=== PATIENT | male | born 1955 | race Caucasian/White ===

== ENCOUNTER 2019-07-27 13:35 | Inpatient (IN) | payer OTHER, MEDICARE ==
[~2019-07-27] VITALS: Ht 185.4 cm; Wt 127.8 kg
--- NOTE | 2019-07-27 13:57 | NUR ---
Pt to room from lobby.
--- NOTE | 2019-07-27 14:17 | NUR ---
Pt states that mailing clerk applied ostomy bag "all wrong" last Saturday. Pt states that since then has been having leaking all around ostomy dressing, watery green drainage noted. Pt's abd skin diffusely excoriated and tender. Pt states that mailing clerk sent pt in to be admitted for wound care. Pt placed in gown, positioned for comfort in bed, declines warm blanket offered. Continuous oxygen and BP monitors applied, all safety measures observed.
--- NOTE | 2019-07-27 14:26 | NUR ---
RECEIVED REPORT FROM [facility], PLAN OF CARE DISCUSSED. DR. ARRIAGA AT FOR EVALUATION.
[2019-07-27 14:29] LABS: MEAN CORPUSCULAR HEMOGLOBIN 24.2 pg (27.5-34.5); MEAN CORPUSCULAR HGB CONC 31.2 g/dL (33.2-36.2); MEAN CORPUSCULAR VOLUME 77.5 fL (81-97); MEAN PLATELET VOLUME 7.5 fL (7.4-10.4); PLATELET COUNT 599 x10^3/uL (130-400); RED BLOOD COUNT 4.98 x10^6/uL (4.38-5.82); RED CELL DISTRIBUTION WIDTH 25.8 % (9.4-14.8)
[2019-07-27 14:31] LABS: ALBUMIN 3.1 g/dL (3.4-5.0); CALCIUM 9.4 mg/dL (8.5-10.1); CREATININE 1.07 mg/dL (0.7-1.3)
[2019-07-27 14:47] LABS: ALANINE AMINOTRANSFERASE 26 U/L (12-78); ALKALINE PHOSPHATASE 92 U/L (45-117); ANION GAP 9 mmol/L (5-15); BILIRUBIN,TOTAL 0.6 mg/dL (0.2-1.0); CHLORIDE 104 mmol/L (98-107); TOTAL PROTEIN 8.4 g/dL (6.4-8.2)
[2019-07-27 15:17] LABS: MD YES
[2019-07-27 15:19] LABS: BAND#(MANUAL) 0.09 x10^3/uL; BANDS%(MANUAL) 1 % (0-7); BASOS#(MANUAL) 0.09 x10^3/uL (0-0.1); BASOS% (MANUAL) 1 % (0-1); EOS#(MANUAL) 0.34 x10^3/uL (0.0-0.4); EOS% (MANUAL) 4 % (1-7); LYMPH#(MANUAL) 1.45 x10^3/uL (1-3.4); LYMPHS% (MANUAL) 17 % (22-44); MONOS#(MANUAL) 0.94 x10^3/uL (0.3-2.7); MONOS% (MANUAL) 11 % (2-9); SEG#(MANUAL) 5.61 x10^3/uL (1.8-6.8); SEGS% (MANUAL) 66 % (42-75)
[2019-07-27 15:20] LABS: ANISOCYTOSIS 2+; HYPOCHROMIA 1+; MICROCYTOSIS 1+
[2019-07-27 15:21] LABS: TARGET CELLS 1+
[2019-07-27 15:22] LABS: <PLATELET ESTIMATE> INCREASED; <PLT MORPHOLOGY> NORMAL PLT MORPH
--- NOTE | 2019-07-27 15:48 | NUR ---
JUNG RIVAS, WOUND CARE IN ROOM
[2019-07-27 15:55] LABS: MICROSCOPIC NOT IND
[2019-07-27 16:04] LABS: CULTURE INDICATED? NO
--- NOTE | 2019-07-27 16:26 | NUR ---
SPOKE WITH JUNG RIVAS, WHO STATES, TO LEAVE FISTULA ALONE TONIGHT DUE TO MESH FIBERS SEEN.
[2019-07-27] MEDS ORDERED: OMNIPAQUE 350 MG/ML, 150 ML BOTTLE ONE (16:27)
--- NOTE | 2019-07-27 17:00 | NUR ---
PT RESTING, WILL BE ADMITTED, VERBALZIED NO NEEDS AT THIS TIME
[2019-07-27] MEDS ORDERED: VANCOMYCIN PER PHARMACY MC PRN ×2 (17:30→19:30)
--- NOTE | 2019-07-27 17:41 | NUR ---
REPORT JULIANNE RIVAS, PLAN OF CARE DISCUSSED.
[2019-07-27] MEDS ORDERED: VANCOMYCIN 2,000 MG in SODIUM CHLORIDE 0.9% 500 ML IV ONE (18:00)
[2019-07-27 18:50] VITALS: BP 97/63
[2019-07-27] MEDS ORDERED: ENALAPRILAT 1.25 MG/ML, 2ML IVPush PRN (19:30)
[2019-07-27] MEDS ORDERED: ONDANSETRON ODT 4 MG PO PRN (19:30)
[2019-07-27] MEDS ORDERED: LIDODERM 5% PATCH TD PRN (19:30)
[2019-07-27] MEDS ORDERED: ACETAMINOPHEN 325 MG TABLET PO PRN (19:30)
[2019-07-27] MEDS ORDERED: TEMAZEPAM 15 MG CAPSULE PO PRN (19:30)
[2019-07-27] MEDS: VANCOMYCIN 2,000 MG in SODIUM CHLORIDE 0.9% 500 ML IV SCH ×2 (19:43→21:07)
[2019-07-27] MEDS ORDERED: PHARMACOKINETIC MONITORING MC PRN (20:00)
[2019-07-28 00:43] VITALS: BP 107/71
[2019-07-28 07:32] VITALS: BP 109/66
[2019-07-28] MEDS: IRON SUCROSE COMPLEX 100MG/5ML IV SCH (09:01)
[2019-07-28 10:07] LABS: ANION GAP 5 mmol/L (5-15); CALCIUM 8.8 mg/dL (8.5-10.1); CHLORIDE 109 mmol/L (98-107)
[2019-07-28 10:09] LABS: MEAN CORPUSCULAR HGB CONC 30.9 g/dL (33.2-36.2); MEAN CORPUSCULAR VOLUME 77.7 fL (81-97); MEAN PLATELET VOLUME 7.7 fL (7.4-10.4); PLATELET COUNT 578 x10^3/uL (130-400); RED CELL DISTRIBUTION WIDTH 25.6 % (9.4-14.8)
[2019-07-28 10:18] LABS: CREATININE 0.94 mg/dL (0.7-1.3)
[2019-07-28 11:01] LABS: BASOPHILS # (AUTO) 0.01 x10^3/uL (0-0.1); BASOPHILS % (AUTO) 0 % (0-1); EOSINOPHILS # (AUTO) 0.44 x10^3/uL (0-0.4); EOSINOPHILS % (AUTO) 7 % (1-7); LYMPHOCYTES # (AUTO) 0.75 x10^3/uL (1-3.4); LYMPHOCYTES % (AUTO) 12 % (22-44); MD SCAN; MONOCYTES % (AUTO) 16 % (2-9); NEUTROPHILS # (AUTO) 3.94 x10^3/uL (1.8-6.8); NEUTROPHILS % (AUTO) 64 % (42-75)
[2019-07-28] MEDS: PIPERACILLIN/TAZO/PMX 3.375GM 50 ML IV SCH ×2 (11:11→18:32)
[2019-07-28] MEDS: VANCOMYCIN 2,000 MG in SODIUM CHLORIDE 0.9% 500 ML IV SCH (14:50)
[2019-07-28 14:59] VITALS: BP 90/60
[2019-07-28 21:10] VITALS: BP 110/70
[2019-07-29] MEDS: PIPERACILLIN/TAZO/PMX 3.375GM 50 ML IV SCH ×6 (00:30→23:57)
[2019-07-29 01:11] VITALS: BP 112/64
[2019-07-29 07:46] VITALS: BP 120/75
[2019-07-29] MEDS: VANCOMYCIN 2,000 MG in SODIUM CHLORIDE 0.9% 500 ML IV SCH (09:30)
[2019-07-29] MEDS: IRON SUCROSE COMPLEX 100MG/5ML IV SCH (09:30)
[2019-07-29 14:00] VITALS: BP 120/74
[2019-07-29 15:48] VITALS: BP 116/71
[2019-07-29 20:06] VITALS: BP 122/69
[2019-07-29] MEDS: TRAZODONE 50MG TABLET PO PRN (23:57)
[2019-07-30 02:26] VITALS: BP 127/71
[2019-07-30] MEDS: VANCOMYCIN 2,000 MG in SODIUM CHLORIDE 0.9% 500 ML IV SCH ×3 (03:30→22:19)
[2019-07-30] MEDS: PIPERACILLIN/TAZO/PMX 3.375GM 50 ML IV SCH ×3 (05:59→18:12)
[2019-07-30 07:13] VITALS: BP 100/63
[2019-07-30] MEDS: HEPARIN 5,000 UNITS/ML, 1ML SQ SCH ×3 (07:58→23:30)
[2019-07-30] MEDS: IRON SUCROSE COMPLEX 100MG/5ML IV SCH (07:58)
[2019-07-30 10:22] LABS: HCT (SEDRATE) 34.6 % (39.2-51.8)
[2019-07-30 15:08] VITALS: BP 128/78
[2019-07-30 20:03] VITALS: BP 119/72
[2019-07-31] MEDS: PIPERACILLIN/TAZO/PMX 3.375GM 50 ML IV SCH ×4 (00:30→18:21)
[2019-07-31] MEDS: HEPARIN 5,000 UNITS/ML, 1ML SQ SCH (07:30)
[2019-07-31 07:51] VITALS: BP 128/82
[2019-07-31] MEDS ORDERED: VANCOMYCIN PER PHARMACY MC PRN (08:00)
[2019-07-31] MEDS: IRON SUCROSE COMPLEX 100MG/5ML IV SCH (09:00)
[2019-07-31] MEDS: ENOXAPARIN 40 MG/0.4 ML SQ SCH (14:00)
[2019-07-31 15:07] VITALS: BP 148/88
[2019-07-31 19:23] VITALS: BP 119/72
[2019-08-01 00:03] VITALS: BP 121/76
[2019-08-01] MEDS: PIPERACILLIN/TAZO/PMX 3.375GM 50 ML IV SCH ×2 (00:08→06:14)
[2019-08-01] MEDS: TRAZODONE 50MG TABLET PO PRN (00:08)
[2019-08-01 06:56] VITALS: BP 111/70
[2019-08-01] MEDS: IRON SUCROSE COMPLEX 100MG/5ML IV SCH (09:19)
[2019-08-01] MEDS: CEFEPIME 2 GM in DEXTROSE 5% 100 ML IV SCH ×2 (10:48→17:55)
[2019-08-01 14:00] VITALS: BP 124/73
[2019-08-01] MEDS: ENOXAPARIN 40 MG/0.4 ML SQ SCH (16:29)
[2019-08-01 19:13] VITALS: BP 116/68
[2019-08-02 00:22] VITALS: BP 112/71
[2019-08-02] MEDS: CEFEPIME 2 GM in DEXTROSE 5% 100 ML IV SCH ×3 (01:46→17:18)
[2019-08-02 05:10] LABS: CREATININE 1.12 mg/dL (0.7-1.3)
[2019-08-02 08:48] VITALS: BP 118/71
[2019-08-02] MEDS ORDERED: IRON SUCROSE COMPLEX 100MG/5ML IV SCH (09:00)
[2019-08-02] MEDS: ENOXAPARIN 40 MG/0.4 ML SQ SCH (09:40)
[2019-08-02 12:13] VITALS: BP 108/62
[2019-08-02 19:20] VITALS: BP 116/71
[2019-08-03 00:32] VITALS: BP 109/62
[2019-08-03] MEDS: CEFEPIME 2 GM in DEXTROSE 5% 100 ML IV SCH ×3 (01:48→17:29)
[2019-08-03] MEDS: TRAZODONE 50MG TABLET PO PRN (01:48)
[2019-08-03 03:33] LABS: MEAN CORPUSCULAR HGB CONC 30.5 g/dL (33.2-36.2); MEAN CORPUSCULAR VOLUME 78.7 fL (81-97); MEAN PLATELET VOLUME 7.5 fL (7.4-10.4); PLATELET COUNT 606 x10^3/uL (130-400); RED BLOOD COUNT 4.71 x10^6/uL (4.38-5.82); RED CELL DISTRIBUTION WIDTH 26.7 % (9.4-14.8)
[2019-08-03 03:42] LABS: ALANINE AMINOTRANSFERASE 43 U/L (12-78); ALBUMIN 2.7 g/dL (3.4-5.0); ANION GAP 8 mmol/L (5-15); CHLORIDE 108 mmol/L (98-107)
[2019-08-03 03:45] LABS: ANISOCYTOSIS 2+; BASOPHILS % (AUTO) 0 % (0-1); EOSINOPHILS # (AUTO) 0.97 x10^3/uL (0-0.4); EOSINOPHILS % (AUTO) 10 % (1-7); HYPOCHROMIA 1+; LYMPHOCYTES # (AUTO) 2.94 x10^3/uL (1-3.4); LYMPHOCYTES % (AUTO) 30 % (22-44); MD MORPH REVIEW ONLY; MICROCYTOSIS 1+; MONOCYTES # (AUTO) 1.03 x10^3/uL (0.2-0.8); MONOCYTES % (AUTO) 11 % (2-9); NEUTROPHILS # (AUTO) 4.88 x10^3/uL (1.8-6.8); NEUTROPHILS % (AUTO) 50 % (42-75)
[2019-08-03 03:46] LABS: POLYCHROMASIA 1+; TARGET CELLS 1+; TEAR DROPS 1+
[2019-08-03 03:47] LABS: <PLATELET ESTIMATE> INCREASED; <PLT MORPHOLOGY> NORMAL PLT MORPH
[2019-08-03 03:49] LABS: ALKALINE PHOSPHATASE 72 U/L (45-117); BILIRUBIN,TOTAL 0.2 mg/dL (0.2-1.0); CREATININE 1.03 mg/dL (0.7-1.3); TOTAL PROTEIN 7.1 g/dL (6.4-8.2)
[2019-08-03 07:20] VITALS: BP 108/69
[2019-08-03 13:27] VITALS: BP 121/72
[2019-08-03] MEDS: ENOXAPARIN 40 MG/0.4 ML SQ SCH (13:47)
[2019-08-03 19:05] VITALS: BP 109/71
[2019-08-04 01:21] VITALS: BP 117/62
[2019-08-04] MEDS: CEFEPIME 2 GM in DEXTROSE 5% 100 ML IV SCH ×3 (01:38→17:42)
[2019-08-04] MEDS: TRAZODONE 50MG TABLET PO PRN (01:47)
[2019-08-04 08:19] VITALS: BP 113/77
[2019-08-04] MEDS: FERROUS SULFATE 325 MG TABLET PO SCH (09:30)
[2019-08-04] MEDS: ENOXAPARIN 40 MG/0.4 ML SQ SCH (14:00)
[2019-08-04 15:35] VITALS: BP 104/65
[2019-08-04 19:54] VITALS: BP 132/75
[2019-08-05] MEDS: TRAZODONE 50MG TABLET PO PRN (01:48)
[2019-08-05] MEDS: CEFEPIME 2 GM in DEXTROSE 5% 100 ML IV SCH ×3 (01:48→18:06)
[2019-08-05 02:41] VITALS: BP 98/60
[2019-08-05 08:22] VITALS: BP 124/75
[2019-08-05] MEDS: FERROUS SULFATE 325 MG TABLET PO SCH (08:37)
[2019-08-05 13:40] VITALS: BP 121/72
[2019-08-05] MEDS: ENOXAPARIN 40 MG/0.4 ML SQ SCH (14:00)
[2019-08-05 19:54] VITALS: BP 129/70
[2019-08-06 01:43] VITALS: BP 121/72
[2019-08-06] MEDS: CEFEPIME 2 GM in DEXTROSE 5% 100 ML IV SCH ×3 (02:03→18:42)
[2019-08-06] MEDS: FERROUS SULFATE 325 MG TABLET PO SCH (07:38)
[2019-08-06 08:24] VITALS: BP 108/65
[2019-08-06] MEDS: ENOXAPARIN 40 MG/0.4 ML SQ SCH (14:00)
[2019-08-06 14:47] VITALS: BP 121/73
[2019-08-06 21:29] VITALS: BP 113/68
[2019-08-07] MEDS: TRAZODONE 50MG TABLET PO PRN (01:51)
[2019-08-07] MEDS: CEFEPIME 2 GM in DEXTROSE 5% 100 ML IV SCH ×3 (01:52→17:32)
[2019-08-07 02:45] VITALS: BP 110/74
[2019-08-07] MEDS: FERROUS SULFATE 325 MG TABLET PO SCH (08:40)
[2019-08-07 08:52] VITALS: BP 105/68
[2019-08-07] MEDS: ENOXAPARIN 40 MG/0.4 ML SQ SCH (14:00)
[2019-08-07 14:49] VITALS: BP 126/79
[2019-08-07 20:00] VITALS: BP 156/91
[2019-08-08 01:00] VITALS: BP 119/74
[2019-08-08] MEDS: CEFEPIME 2 GM in DEXTROSE 5% 100 ML IV SCH ×3 (01:44→17:23)
[2019-08-08 07:07] VITALS: BP 113/70
[2019-08-08] MEDS: FERROUS SULFATE 325 MG TABLET PO SCH (08:53)
[2019-08-08] MEDS: MULTIVITAMIN 1 TABLET PO SCH (08:53)
[2019-08-08 14:45] VITALS: BP 130/78
[2019-08-08] MEDS: ENOXAPARIN 40 MG/0.4 ML SQ SCH (17:23)
[2019-08-09] MEDS: CEFEPIME 2 GM in DEXTROSE 5% 100 ML IV SCH ×3 (01:44→17:32)
[2019-08-09] MEDS: TRAZODONE 50MG TABLET PO PRN (02:23)
[2019-08-09 08:40] VITALS: BP 136/86
[2019-08-09] MEDS: FERROUS SULFATE 325 MG TABLET PO SCH (09:36)
[2019-08-09] MEDS: MULTIVITAMIN 1 TABLET PO SCH (09:36)
[2019-08-09 14:56] VITALS: BP 114/77
[2019-08-09] MEDS: ENOXAPARIN 40 MG/0.4 ML SQ SCH (17:32)
[2019-08-09 20:21] VITALS: BP 107/70
[2019-08-10 00:58] VITALS: BP 119/77
[2019-08-10] MEDS: TRAZODONE 50MG TABLET PO PRN (01:51)
[2019-08-10] MEDS: CEFEPIME 2 GM in DEXTROSE 5% 100 ML IV SCH ×3 (01:51→18:01)
[2019-08-10] MEDS: FERROUS SULFATE 325 MG TABLET PO SCH (08:13)
[2019-08-10] MEDS: MULTIVITAMIN 1 TABLET PO SCH (08:13)
[2019-08-10 08:50] VITALS: BP 114/72
[2019-08-10 12:54] LABS: HCT (SEDRATE) 42.3 % (39.2-51.8)
[2019-08-10 13:20] VITALS: BP 133/81
[2019-08-10] MEDS ORDERED: CATHFLO-ALTEPLASE 2 MG/2 ML CATHFLUSH ONE (17:00)
[2019-08-10] MEDS: ENOXAPARIN 40 MG/0.4 ML SQ SCH (18:01)
[2019-08-10 18:32] VITALS: BP 126/82
[2019-08-11] MEDS: CEFEPIME 2 GM in DEXTROSE 5% 100 ML IV SCH ×3 (02:08→18:21)
[2019-08-11 02:11] VITALS: BP 126/84
[2019-08-11 06:09] LABS: ALANINE AMINOTRANSFERASE 75 U/L (12-78); ALBUMIN 2.9 g/dL (3.4-5.0); ANION GAP 5 mmol/L (5-15); CALCIUM 9.1 mg/dL (8.5-10.1); CHLORIDE 109 mmol/L (98-107); MEAN CORPUSCULAR HGB CONC 31.1 g/dL (33.2-36.2); MEAN CORPUSCULAR VOLUME 80.4 fL (81-97); MEAN PLATELET VOLUME 8.1 fL (7.4-10.4); PLATELET COUNT 407 x10^3/uL (130-400); RED BLOOD COUNT 4.82 x10^6/uL (4.38-5.82); RED CELL DISTRIBUTION WIDTH 26.9 % (9.4-14.8)
[2019-08-11 06:12] LABS: ALKALINE PHOSPHATASE 90 U/L (45-117); BILIRUBIN,TOTAL 0.2 mg/dL (0.2-1.0); CREATININE 1.05 mg/dL (0.7-1.3); TOTAL PROTEIN 7.7 g/dL (6.4-8.2)
[2019-08-11 06:22] LABS: MD YES
[2019-08-11 06:24] LABS: EOS#(MANUAL) 1.64 x10^3/uL (0.0-0.4); EOS% (MANUAL) 18 % (1-7); LYMPH#(MANUAL) 2.28 x10^3/uL (1-3.4); LYMPHS% (MANUAL) 25 % (22-44); MONOS#(MANUAL) 0.46 x10^3/uL (0.3-2.7); MONOS% (MANUAL) 5 % (2-9); SEG#(MANUAL) 4.73 x10^3/uL (1.8-6.8); SEGS% (MANUAL) 52 % (42-75)
[2019-08-11 06:25] LABS: <PLATELET ESTIMATE> ADEQUATE; <PLT MORPHOLOGY> NORMAL PLT MORPH; ANISOCYTOSIS 2+; HYPOCHROMIA 1+; MICROCYTOSIS 1+; POLYCHROMASIA 1+; TARGET CELLS 1+; TEAR DROPS 1+
[2019-08-11 06:52] VITALS: BP 121/79
[2019-08-11] MEDS: FERROUS SULFATE 325 MG TABLET PO SCH (08:48)
[2019-08-11] MEDS: MULTIVITAMIN 1 TABLET PO SCH (08:48)
[2019-08-11 13:15] VITALS: BP 119/74
[2019-08-11] MEDS: ENOXAPARIN 40 MG/0.4 ML SQ SCH (18:00)
[2019-08-11 18:59] VITALS: BP 123/79
[2019-08-12 00:44] VITALS: BP 119/74
[2019-08-12] MEDS: TRAZODONE 50MG TABLET PO PRN ×2 (02:47→22:52)
[2019-08-12 03:25] LABS: ALANINE AMINOTRANSFERASE 79 U/L (12-78); ANION GAP 6 mmol/L (5-15); CALCIUM 8.9 mg/dL (8.5-10.1); CHLORIDE 107 mmol/L (98-107); CREATININE 1.13 mg/dL (0.7-1.3)
[2019-08-12 03:27] LABS: ALKALINE PHOSPHATASE 94 U/L (45-117); BILIRUBIN,TOTAL 0.3 mg/dL (0.2-1.0); TOTAL PROTEIN 7.9 g/dL (6.4-8.2)
[2019-08-12 06:59] VITALS: BP 98/62
[2019-08-12] MEDS: MULTIVITAMIN 1 TABLET PO SCH (08:20)
[2019-08-12] MEDS: FERROUS SULFATE 325 MG TABLET PO SCH (08:20)
[2019-08-12 13:45] VITALS: BP 121/68
[2019-08-12] MEDS: ENOXAPARIN 40 MG/0.4 ML SQ SCH (17:49)
[2019-08-12 18:50] VITALS: BP 108/67
[2019-08-13 09:01] VITALS: BP 122/81
[2019-08-13] MEDS: MULTIVITAMIN 1 TABLET PO SCH (09:03)
[2019-08-13] MEDS: FERROUS SULFATE 325 MG TABLET PO SCH (09:03)
[2019-08-13 13:15] VITALS: BP 153/71
[2019-08-13] MEDS: ENOXAPARIN 40 MG/0.4 ML SQ SCH (17:24)
[2019-08-13] MEDS: TRAZODONE 50MG TABLET PO PRN (22:20)
[2019-08-13 22:22] VITALS: BP 130/76
[2019-08-14 08:53] VITALS: BP 116/66
[2019-08-14] MEDS: FERROUS SULFATE 325 MG TABLET PO SCH (08:55)
[2019-08-14] MEDS: MULTIVITAMIN 1 TABLET PO SCH (08:56)
[2019-08-14 15:19] VITALS: BP 130/80
[2019-08-14] MEDS: ENOXAPARIN 40 MG/0.4 ML SQ SCH (17:38)
[2019-08-14 20:18] VITALS: BP 104/78
[2019-08-14] MEDS: TRAZODONE 50MG TABLET PO PRN (22:32)
[2019-08-15 08:53] VITALS: BP 128/71
[2019-08-15] MEDS: MULTIVITAMIN 1 TABLET PO SCH (08:56)
[2019-08-15] MEDS: FERROUS SULFATE 325 MG TABLET PO SCH (08:56)
[2019-08-15 14:58] VITALS: BP 148/83
[2019-08-15] MEDS: ENOXAPARIN 40 MG/0.4 ML SQ SCH (18:00)
[2019-08-15 19:06] VITALS: BP 120/76
[2019-08-15] MEDS: TRAZODONE 50MG TABLET PO PRN (22:14)
[2019-08-16 01:13] VITALS: BP 105/60
[2019-08-16 05:25] LABS: CHLORIDE 106 mmol/L (98-107)
[2019-08-16 05:32] LABS: ALANINE AMINOTRANSFERASE 48 U/L (12-78); ALBUMIN 3.2 g/dL (3.4-5.0); ALKALINE PHOSPHATASE 85 U/L (45-117); ANION GAP 6 mmol/L (5-15); BILIRUBIN,TOTAL 0.4 mg/dL (0.2-1.0); CALCIUM 9.1 mg/dL (8.5-10.1); CREATININE 1.08 mg/dL (0.7-1.3); TOTAL PROTEIN 7.6 g/dL (6.4-8.2)
[2019-08-16 07:10] VITALS: BP 102/67
[2019-08-16] MEDS: FERROUS SULFATE 325 MG TABLET PO SCH (10:25)
[2019-08-16] MEDS: MULTIVITAMIN 1 TABLET PO SCH (10:25)
[2019-08-16 13:07] VITALS: BP 110/71
[2019-08-16] MEDS: ENOXAPARIN 40 MG/0.4 ML SQ SCH (17:10)
[2019-08-16 18:32] VITALS: BP 122/75
[2019-08-16] MEDS: TRAZODONE 50MG TABLET PO PRN (23:22)
[2019-08-17 01:46] VITALS: BP 105/68
[2019-08-17 07:25] VITALS: BP 103/69
[2019-08-17] MEDS: FERROUS SULFATE 325 MG TABLET PO SCH (08:05)
[2019-08-17] MEDS: MULTIVITAMIN 1 TABLET PO SCH (08:05)
[2019-08-17 14:37] VITALS: BP 122/76
[2019-08-17] MEDS: ENOXAPARIN 40 MG/0.4 ML SQ SCH (17:59)
[2019-08-17 20:09] VITALS: BP 129/77
[2019-08-17] MEDS: TRAZODONE 50MG TABLET PO PRN (22:42)
[2019-08-18 04:54] VITALS: BP 112/67
[2019-08-18] MEDS: FERROUS SULFATE 325 MG TABLET PO SCH (08:28)
[2019-08-18] MEDS: MULTIVITAMIN 1 TABLET PO SCH (08:28)
[2019-08-18] MEDS: ENOXAPARIN 40 MG/0.4 ML SQ SCH (16:58)
[2019-08-18 18:59] VITALS: BP 98/63
[2019-08-19 02:08] VITALS: BP 104/57
[2019-08-19] MEDS: DOCUSATE 100 MG CAPSULE PO PRN ×2 (04:44→21:20)
[2019-08-19] MEDS ORDERED: BISACODYL 10 MG SUPP PR PRN (05:30)
[2019-08-19] MEDS ORDERED: POLYETHYLENE GLYCOL 17 GM PACKET PO PRN (05:30)
[2019-08-19] MEDS: FERROUS SULFATE 325 MG TABLET PO SCH ×2 (08:01→08:02)
[2019-08-19] MEDS: MULTIVITAMIN 1 TABLET PO SCH (08:01)
[2019-08-19 08:49] VITALS: BP 90/64
[2019-08-19] MEDS ORDERED: BISACODYL 10 MG SUPP PR SCH (09:30)
[2019-08-19] MEDS ORDERED: LACTULOSE 3.3 GM/5 ML ORAL.SOL RC ONE (09:30)
[2019-08-19 12:44] VITALS: BP 121/74
[2019-08-19] MEDS: ENOXAPARIN 40 MG/0.4 ML SQ SCH (18:00)
[2019-08-19 18:55] VITALS: BP 111/77
[2019-08-20 02:59] VITALS: BP 128/80
[2019-08-20 07:40] VITALS: BP 109/69
[2019-08-20] MEDS: MULTIVITAMIN 1 TABLET PO SCH (09:53)
[2019-08-20 14:55] VITALS: BP 119/76
[2019-08-20] MEDS: ENOXAPARIN 40 MG/0.4 ML SQ SCH (17:46)
[2019-08-20 19:37] VITALS: BP 121/74
[2019-08-21] MEDS: DOCUSATE 100 MG CAPSULE PO PRN (00:21)
[2019-08-21] MEDS: TRAZODONE 50MG TABLET PO PRN ×2 (00:21→23:59)
[2019-08-21 00:29] VITALS: BP 105/66
[2019-08-21 07:31] VITALS: BP 113/74
[2019-08-21] MEDS: FERROUS SULFATE 325 MG TABLET PO SCH (08:46)
[2019-08-21] MEDS: MULTIVITAMIN 1 TABLET PO SCH (08:46)
[2019-08-21 12:27] VITALS: BP 101/70
[2019-08-21] MEDS: ENOXAPARIN 40 MG/0.4 ML SQ SCH (18:00)
[2019-08-21 19:16] VITALS: BP 112/71
[2019-08-22 00:53] VITALS: BP 98/74
[2019-08-22] MEDS: FERROUS SULFATE 325 MG TABLET PO SCH (08:46)
[2019-08-22] MEDS: MULTIVITAMIN 1 TABLET PO SCH (08:46)
[2019-08-22 11:30] VITALS: BP 116/76
[2019-08-22] MEDS: ENOXAPARIN 40 MG/0.4 ML SQ SCH (18:00)
[2019-08-22 18:31] VITALS: BP 129/72
[2019-08-22] MEDS: TRAZODONE 50MG TABLET PO PRN (23:24)
[2019-08-22] MEDS: DOCUSATE 100 MG CAPSULE PO PRN ×2 (23:24)
[2019-08-23 08:00] VITALS: BP 114/67
[2019-08-23] MEDS: MULTIVITAMIN 1 TABLET PO SCH (08:17)
[2019-08-23] MEDS: FERROUS SULFATE 325 MG TABLET PO SCH (08:17)
[2019-08-23 10:36] VITALS: BP 114/67
[2019-08-23 13:30] VITALS: BP 118/70
[2019-08-23] MEDS: ENOXAPARIN 40 MG/0.4 ML SQ SCH (18:00)
[2019-08-23 19:56] VITALS: BP 115/74
[2019-08-23] MEDS: TRAZODONE 50MG TABLET PO PRN (23:43)
[2019-08-23] MEDS: DOCUSATE 100 MG CAPSULE PO PRN (23:44)
[2019-08-24 02:16] VITALS: BP 102/67
[2019-08-24 08:00] VITALS: BP 106/73
[2019-08-24] MEDS: MULTIVITAMIN 1 TABLET PO SCH (08:32)
[2019-08-24] MEDS: FERROUS SULFATE 325 MG TABLET PO SCH (08:32)
[2019-08-24] MEDS: DOCUSATE 100 MG CAPSULE PO PRN (08:37)
[2019-08-24 13:09] VITALS: BP 108/70
[2019-08-24] MEDS: ENOXAPARIN 40 MG/0.4 ML SQ SCH (18:00)
[2019-08-24 18:49] VITALS: BP 126/76
[2019-08-25] MEDS: DOCUSATE 100 MG CAPSULE PO PRN (04:24)
[2019-08-25 07:11] VITALS: BP 130/81
[2019-08-25] MEDS: MULTIVITAMIN 1 TABLET PO SCH (08:07)
[2019-08-25] MEDS: FERROUS SULFATE 325 MG TABLET PO SCH (08:07)
[2019-08-25] MEDS ORDERED: ZINC PO SCH (09:30)
[2019-08-25] MEDS ORDERED: MULTIVIT STRESS FORMULA PO SCH (09:30)
[2019-08-25] MEDS: MULTIVITS,STRESS FORMULA 1 TABLET PO SCH (10:37)
[2019-08-25 13:41] VITALS: BP 94/66
[2019-08-25] MEDS: ENOXAPARIN 40 MG/0.4 ML SQ SCH (18:00)
[2019-08-25 20:06] VITALS: BP 111/74
[2019-08-26] MEDS: DOCUSATE 100 MG CAPSULE PO PRN (04:17)
[2019-08-26 08:12] VITALS: BP 88/63
[2019-08-26] MEDS: MULTIVITAMIN 1 TABLET PO SCH (09:10)
[2019-08-26] MEDS: FERROUS SULFATE 325 MG TABLET PO SCH (09:10)
[2019-08-26] MEDS: MULTIVITS,STRESS FORMULA 1 TABLET PO SCH (09:10)
[2019-08-26 14:13] VITALS: BP 108/70
[2019-08-26] MEDS: ENOXAPARIN 40 MG/0.4 ML SQ SCH (17:22)
[2019-08-26 19:46] VITALS: BP 112/72
[2019-08-27 07:38] VITALS: BP 105/69
[2019-08-27] MEDS: FERROUS SULFATE 325 MG TABLET PO SCH (08:35)
[2019-08-27] MEDS: MULTIVITAMIN 1 TABLET PO SCH (08:35)
[2019-08-27] MEDS: MULTIVITS,STRESS FORMULA 1 TABLET PO SCH (08:35)
[2019-08-27] MEDS: DOCUSATE 100 MG CAPSULE PO PRN (09:51)
[2019-08-27 14:32] VITALS: BP 93/64
[2019-08-27] MEDS: ENOXAPARIN 40 MG/0.4 ML SQ SCH (18:00)
[2019-08-27 18:47] VITALS: BP 93/66
[2019-08-28 07:29] VITALS: BP 105/68
[2019-08-28] MEDS: FERROUS SULFATE 325 MG TABLET PO SCH ×2 (09:14→09:24)
[2019-08-28] MEDS: MULTIVITAMIN 1 TABLET PO SCH ×2 (09:14→09:24)
[2019-08-28] MEDS: MULTIVITS,STRESS FORMULA 1 TABLET PO SCH ×2 (09:14→09:24)
[2019-08-28] MEDS: ENOXAPARIN 40 MG/0.4 ML SQ SCH (09:15)
[2019-08-28] MEDS: DOCUSATE 100 MG CAPSULE PO PRN (09:23)
[2019-08-28 15:02] VITALS: BP 115/75
[2019-08-28 18:58] VITALS: BP 122/76
[2019-08-29 03:22] VITALS: BP 100/62
[2019-08-29] MEDS: DOCUSATE 100 MG CAPSULE PO PRN (04:01)
[2019-08-29 08:27] VITALS: BP 113/73
[2019-08-29] MEDS: MULTIVITS,STRESS FORMULA 1 TABLET PO SCH (09:29)
[2019-08-29] MEDS: FERROUS SULFATE 325 MG TABLET PO SCH (09:30)
[2019-08-29] MEDS: MULTIVITAMIN 1 TABLET PO SCH (09:30)
[2019-08-29 13:25] VITALS: BP 98/68
[2019-08-29] MEDS: ENOXAPARIN 40 MG/0.4 ML SQ SCH (17:02)
[2019-08-29 20:07] VITALS: BP 111/73
[2019-08-30 03:28] VITALS: BP 102/68
[2019-08-30] MEDS: TRAZODONE 50MG TABLET PO PRN ×2 (03:45→23:02)
[2019-08-30] MEDS: DOCUSATE 100 MG CAPSULE PO PRN (09:49)
[2019-08-30] MEDS: MULTIVITAMIN 1 TABLET PO SCH (09:49)
[2019-08-30] MEDS: MULTIVITS,STRESS FORMULA 1 TABLET PO SCH (09:49)
[2019-08-30] MEDS: FERROUS SULFATE 325 MG TABLET PO SCH (09:49)
[2019-08-30 13:33] VITALS: BP_SYST 112; BP_SYST 78; BP_DIAS 51; BP_DIAS 68
[2019-08-30] MEDS: ENOXAPARIN 40 MG/0.4 ML SQ SCH (18:00)
[2019-08-30 19:14] VITALS: BP 93/62
[2019-08-31 07:10] VITALS: BP 96/56
[2019-08-31] MEDS: FERROUS SULFATE 325 MG TABLET PO SCH (08:00)
[2019-08-31] MEDS: MULTIVITAMIN 1 TABLET PO SCH (09:00)
[2019-08-31] MEDS: MULTIVITS,STRESS FORMULA 1 TABLET PO SCH (09:00)
[2019-08-31 14:28] VITALS: BP 126/76
[2019-08-31] MEDS: ENOXAPARIN 40 MG/0.4 ML SQ SCH (16:38)
[2019-08-31 20:20] VITALS: BP 121/60
[2019-09-01 00:21] VITALS: BP 118/72
[2019-09-01 07:26] VITALS: BP 90/65
[2019-09-01] MEDS: MULTIVITAMIN 1 TABLET PO SCH (09:22)
[2019-09-01] MEDS: MULTIVITS,STRESS FORMULA 1 TABLET PO SCH (09:22)
[2019-09-01] MEDS: FERROUS SULFATE 325 MG TABLET PO SCH (09:22)
[2019-09-01] MEDS: ENOXAPARIN 40 MG/0.4 ML SQ SCH (17:15)
[2019-09-01 19:40] VITALS: BP 121/73
[2019-09-02 01:00] VITALS: BP 120/75
[2019-09-02] MEDS: FERROUS SULFATE 325 MG TABLET PO SCH (07:18)
[2019-09-02] MEDS: MULTIVITS,STRESS FORMULA 1 TABLET PO SCH (07:18)
[2019-09-02] MEDS: MULTIVITAMIN 1 TABLET PO SCH (07:18)
[2019-09-02 07:43] VITALS: BP 123/84
[2019-09-02 14:00] VITALS: BP 122/58
[2019-09-02] MEDS: ENOXAPARIN 40 MG/0.4 ML SQ SCH (17:26)
[2019-09-02 19:50] VITALS: BP 116/75
[2019-09-03 03:55] VITALS: BP 114/73
[2019-09-03 06:53] VITALS: BP 116/97
[2019-09-03] MEDS: MULTIVITAMIN 1 TABLET PO SCH (08:09)
[2019-09-03] MEDS: FERROUS SULFATE 325 MG TABLET PO SCH (08:09)
[2019-09-03] MEDS: MULTIVITS,STRESS FORMULA 1 TABLET PO SCH (08:09)
[2019-09-03] MEDS: DOCUSATE 100 MG CAPSULE PO PRN ×2 (08:13→23:11)
[2019-09-03 12:36] VITALS: BP 117/56
[2019-09-03] MEDS: ENOXAPARIN 40 MG/0.4 ML SQ SCH (18:00)
[2019-09-03 20:10] VITALS: BP 113/62
[2019-09-03] MEDS: TRAZODONE 50MG TABLET PO PRN (23:11)
[2019-09-04 03:04] VITALS: BP 115/70
[2019-09-04 08:10] VITALS: BP 139/78
[2019-09-04] MEDS: MULTIVITAMIN 1 TABLET PO SCH (09:56)
[2019-09-04] MEDS: FERROUS SULFATE 325 MG TABLET PO SCH (09:56)
[2019-09-04] MEDS: MULTIVITS,STRESS FORMULA 1 TABLET PO SCH (09:56)
[2019-09-04 14:42] VITALS: BP 114/72
[2019-09-04] MEDS: ENOXAPARIN 40 MG/0.4 ML SQ SCH (18:00)
[2019-09-04 20:18] VITALS: BP 108/69
[2019-09-04] MEDS: DOCUSATE 100 MG CAPSULE PO PRN (23:48)
[2019-09-04] MEDS: TRAZODONE 50MG TABLET PO PRN (23:48)
[2019-09-05 01:14] VITALS: BP 100/62
[2019-09-05 07:39] VITALS: BP 115/70
[2019-09-05] MEDS: MULTIVITS,STRESS FORMULA 1 TABLET PO SCH (08:28)
[2019-09-05] MEDS: MULTIVITAMIN 1 TABLET PO SCH (08:28)
[2019-09-05] MEDS: FERROUS SULFATE 325 MG TABLET PO SCH (08:29)
[2019-09-05] MEDS: DOCUSATE 100 MG CAPSULE PO PRN ×2 (08:40→23:17)
[2019-09-05 13:04] VITALS: BP 116/74
[2019-09-05] MEDS: ENOXAPARIN 40 MG/0.4 ML SQ SCH (18:00)
[2019-09-05 19:34] VITALS: BP 107/75
[2019-09-05] MEDS: TRAZODONE 50MG TABLET PO PRN (23:17)
[2019-09-06] MEDS: FERROUS SULFATE 325 MG TABLET PO SCH (07:47)
[2019-09-06] MEDS: MULTIVITAMIN 1 TABLET PO SCH (07:48)
[2019-09-06] MEDS: MULTIVITS,STRESS FORMULA 1 TABLET PO SCH (07:48)
[2019-09-06 07:50] VITALS: BP 118/74
[2019-09-06 14:00] VITALS: BP 115/68
[2019-09-06] MEDS: ENOXAPARIN 40 MG/0.4 ML SQ SCH (16:16)
[2019-09-06 19:57] VITALS: BP 116/74
[2019-09-07] MEDS: TRAZODONE 50MG TABLET PO PRN (00:38)
[2019-09-07] MEDS: DOCUSATE 100 MG CAPSULE PO PRN (00:38)
[2019-09-07 01:58] VITALS: BP 95/60
[2019-09-07 08:01] VITALS: BP 113/69
[2019-09-07] MEDS: MULTIVITAMIN 1 TABLET PO SCH (08:34)
[2019-09-07] MEDS: FERROUS SULFATE 325 MG TABLET PO SCH (08:34)
[2019-09-07] MEDS: MULTIVITS,STRESS FORMULA 1 TABLET PO SCH (08:34)
[2019-09-07 13:54] VITALS: BP 105/65
[2019-09-07] MEDS: ENOXAPARIN 40 MG/0.4 ML SQ SCH (17:31)
[2019-09-07 19:37] VITALS: BP 109/70
[2019-09-07 23:58] VITALS: BP 100/67
[2019-09-08] MEDS: TRAZODONE 50MG TABLET PO PRN (00:12)
[2019-09-08 07:57] VITALS: BP 103/65
[2019-09-08] MEDS: MULTIVITAMIN 1 TABLET PO SCH (09:18)
[2019-09-08] MEDS: FERROUS SULFATE 325 MG TABLET PO SCH (09:18)
[2019-09-08] MEDS: MULTIVITS,STRESS FORMULA 1 TABLET PO SCH (09:18)
[2019-09-08 14:19] VITALS: BP 110/65
[2019-09-08] MEDS: ENOXAPARIN 40 MG/0.4 ML SQ SCH (17:30)
[2019-09-08 19:00] VITALS: BP 108/68
[2019-09-09 00:18] VITALS: BP 109/67
[2019-09-09] MEDS: TRAZODONE 50MG TABLET PO PRN (00:29)
[2019-09-09] MEDS: DOCUSATE 100 MG CAPSULE PO PRN (00:29)
[2019-09-09] MEDS: FERROUS SULFATE 325 MG TABLET PO SCH (09:00)
[2019-09-09] MEDS: MULTIVITS,STRESS FORMULA 1 TABLET PO SCH (09:00)
[2019-09-09] MEDS: MULTIVITAMIN 1 TABLET PO SCH (09:00)
[2019-09-09 09:01] VITALS: BP 114/71
[2019-09-09 14:17] VITALS: BP 111/75
[2019-09-09] MEDS: ENOXAPARIN 40 MG/0.4 ML SQ SCH (17:24)
[2019-09-09 20:01] VITALS: BP 126/72
[2019-09-10 00:10] VITALS: BP 118/67
[2019-09-10] MEDS: TRAZODONE 50MG TABLET PO PRN ×2 (00:23→23:24)
[2019-09-10] MEDS: DOCUSATE 100 MG CAPSULE PO PRN ×2 (00:23→23:24)
[2019-09-10] MEDS: FERROUS SULFATE 325 MG TABLET PO SCH (10:46)
[2019-09-10] MEDS: MULTIVITS,STRESS FORMULA 1 TABLET PO SCH (10:46)
[2019-09-10] MEDS: MULTIVITAMIN 1 TABLET PO SCH (10:46)
[2019-09-10] MEDS: ENOXAPARIN 40 MG/0.4 ML SQ SCH (18:00)
[2019-09-10 19:31] VITALS: BP 107/62
[2019-09-10 23:26] VITALS: BP 120/67
[2019-09-11 02:29] VITALS: BP 118/65
[2019-09-11 07:44] VITALS: BP 110/73
[2019-09-11] MEDS: FERROUS SULFATE 325 MG TABLET PO SCH (10:53)
[2019-09-11] MEDS: MULTIVITS,STRESS FORMULA 1 TABLET PO SCH (10:53)
[2019-09-11] MEDS: MULTIVITAMIN 1 TABLET PO SCH (10:53)
[2019-09-11 14:00] VITALS: BP 130/76
[2019-09-11] MEDS: ENOXAPARIN 40 MG/0.4 ML SQ SCH (18:00)
[2019-09-11 20:49] VITALS: BP 142/69
[2019-09-11] MEDS: TRAZODONE 50MG TABLET PO PRN (23:25)
[2019-09-11] MEDS: DOCUSATE 100 MG CAPSULE PO PRN (23:25)
[2019-09-12 00:25] VITALS: BP 114/70
[2019-09-12] MEDS: FERROUS SULFATE 325 MG TABLET PO SCH (08:00)
[2019-09-12] MEDS: MULTIVITAMIN 1 TABLET PO SCH (09:00)
[2019-09-12] MEDS: MULTIVITS,STRESS FORMULA 1 TABLET PO SCH (09:00)
[2019-09-12] MEDS: ENOXAPARIN 40 MG/0.4 ML SQ SCH (18:03)
[2019-09-12 19:25] VITALS: BP 117/72
[2019-09-12] MEDS: TRAZODONE 50MG TABLET PO PRN (23:48)
[2019-09-13 01:59] VITALS: BP 102/63
[2019-09-13 07:30] VITALS: BP 116/74
[2019-09-13] MEDS: MULTIVITAMIN 1 TABLET PO SCH (08:54)
[2019-09-13] MEDS: FERROUS SULFATE 325 MG TABLET PO SCH (08:54)
[2019-09-13] MEDS: MULTIVITS,STRESS FORMULA 1 TABLET PO SCH (08:54)
[2019-09-13 13:40] VITALS: BP 125/76
[2019-09-13] MEDS: ENOXAPARIN 40 MG/0.4 ML SQ SCH (18:00)
[2019-09-13 18:26] VITALS: BP 133/79
[2019-09-14] MEDS: TRAZODONE 50MG TABLET PO PRN (01:48)
[2019-09-14 10:25] VITALS: BP 105/61
[2019-09-14] MEDS: FERROUS SULFATE 325 MG TABLET PO SCH (10:38)
[2019-09-14] MEDS: MULTIVITS,STRESS FORMULA 1 TABLET PO SCH (10:39)
[2019-09-14] MEDS: MULTIVITAMIN 1 TABLET PO SCH (10:39)
[2019-09-14] MEDS: ENOXAPARIN 40 MG/0.4 ML SQ SCH (18:00)
[2019-09-14 19:56] VITALS: BP 123/75
[2019-09-15 08:19] VITALS: BP 125/77
[2019-09-15] MEDS: MULTIVITAMIN 1 TABLET PO SCH (08:35)
[2019-09-15] MEDS: MULTIVITS,STRESS FORMULA 1 TABLET PO SCH (08:35)
[2019-09-15] MEDS: FERROUS SULFATE 325 MG TABLET PO SCH (08:36)
[2019-09-15 14:57] VITALS: BP 138/84
[2019-09-15] MEDS: ENOXAPARIN 40 MG/0.4 ML SQ SCH (17:57)
[2019-09-16 07:29] VITALS: BP 142/79
[2019-09-16] MEDS: MULTIVITS,STRESS FORMULA 1 TABLET PO SCH (08:11)
[2019-09-16] MEDS: MULTIVITAMIN 1 TABLET PO SCH (08:11)
[2019-09-16] MEDS: FERROUS SULFATE 325 MG TABLET PO SCH (08:11)
[2019-09-16 13:08] VITALS: BP 146/74
[2019-09-16] MEDS: ENOXAPARIN 40 MG/0.4 ML SQ SCH (16:31)
[2019-09-16 19:45] VITALS: BP 114/67
[2019-09-17] MEDS: MULTIVITS,STRESS FORMULA 1 TABLET PO SCH (08:23)
[2019-09-17] MEDS: FERROUS SULFATE 325 MG TABLET PO SCH (08:23)
[2019-09-17] MEDS: MULTIVITAMIN 1 TABLET PO SCH (08:23)
[2019-09-17 15:17] VITALS: BP 122/70
[2019-09-17] MEDS: DOCUSATE 100 MG CAPSULE PO PRN (15:38)
[2019-09-17] MEDS: ENOXAPARIN 40 MG/0.4 ML SQ SCH (17:33)
[2019-09-17 19:23] VITALS: BP 136/79
[2019-09-18 01:17] VITALS: BP 119/68
[2019-09-18] MEDS: FERROUS SULFATE 325 MG TABLET PO SCH (07:58)
[2019-09-18] MEDS: MULTIVITAMIN 1 TABLET PO SCH (07:58)
[2019-09-18] MEDS: MULTIVITS,STRESS FORMULA 1 TABLET PO SCH (07:59)
[2019-09-18 08:51] VITALS: BP 103/61
[2019-09-18 14:37] VITALS: BP 117/81
[2019-09-18] MEDS: ENOXAPARIN 40 MG/0.4 ML SQ SCH (17:55)
[2019-09-18 20:00] VITALS: BP 126/73
[2019-09-19 07:41] VITALS: BP 122/71
[2019-09-19] MEDS: MULTIVITS,STRESS FORMULA 1 TABLET PO SCH (08:05)
[2019-09-19] MEDS: FERROUS SULFATE 325 MG TABLET PO SCH (08:05)
[2019-09-19] MEDS: MULTIVITAMIN 1 TABLET PO SCH (08:05)
[2019-09-19 13:47] VITALS: BP 116/89
[2019-09-19] MEDS: ENOXAPARIN 40 MG/0.4 ML SQ SCH (18:00)
[2019-09-19 20:13] VITALS: BP 106/70
[2019-09-19] MEDS: TRAZODONE 50MG TABLET PO PRN (23:16)
[2019-09-20 02:12] VITALS: BP 93/72
[2019-09-20 07:37] VITALS: BP 115/77
[2019-09-20] MEDS: FERROUS SULFATE 325 MG TABLET PO SCH (08:45)
[2019-09-20] MEDS: MULTIVITAMIN 1 TABLET PO SCH (08:45)
[2019-09-20] MEDS: MULTIVITS,STRESS FORMULA 1 TABLET PO SCH (08:50)
[2019-09-20 14:00] VITALS: BP 110/75
[2019-09-20] MEDS: ENOXAPARIN 40 MG/0.4 ML SQ SCH (16:58)
[2019-09-20 18:37] VITALS: BP 93/67
[2019-09-21] MEDS: MULTIVITAMIN 1 TABLET PO SCH (08:39)
[2019-09-21] MEDS: MULTIVITS,STRESS FORMULA 1 TABLET PO SCH (08:39)
[2019-09-21] MEDS: FERROUS SULFATE 325 MG TABLET PO SCH (08:39)
[2019-09-21 14:00] VITALS: BP 98/57
[2019-09-21] MEDS: ENOXAPARIN 40 MG/0.4 ML SQ SCH (16:59)
[2019-09-21] MEDS: TRAZODONE 50MG TABLET PO PRN (23:37)
[2019-09-22 07:11] VITALS: BP 90/65
[2019-09-22] MEDS: MULTIVITS,STRESS FORMULA 1 TABLET PO SCH (08:40)
[2019-09-22] MEDS: FERROUS SULFATE 325 MG TABLET PO SCH (08:40)
[2019-09-22] MEDS: MULTIVITAMIN 1 TABLET PO SCH (08:40)
[2019-09-22 12:21] VITALS: BP 92/69
[2019-09-22] MEDS: ENOXAPARIN 40 MG/0.4 ML SQ SCH (14:43)
[2019-09-22 18:43] VITALS: BP 132/70
[2019-09-22] MEDS: TRAZODONE 50MG TABLET PO PRN (23:25)
[2019-09-23 07:45] VITALS: BP 102/71
[2019-09-23] MEDS: MULTIVITS,STRESS FORMULA 1 TABLET PO SCH (08:22)
[2019-09-23] MEDS: FERROUS SULFATE 325 MG TABLET PO SCH (08:22)
[2019-09-23] MEDS: MULTIVITAMIN 1 TABLET PO SCH (08:22)
[2019-09-23 12:42] VITALS: BP 109/67
[2019-09-23] MEDS: ENOXAPARIN 40 MG/0.4 ML SQ SCH (14:08)
[2019-09-23 20:30] VITALS: BP 105/74
[2019-09-24] MEDS: FERROUS SULFATE 325 MG TABLET PO SCH (08:30)
[2019-09-24] MEDS: MULTIVITS,STRESS FORMULA 1 TABLET PO SCH (08:30)
[2019-09-24] MEDS: MULTIVITAMIN 1 TABLET PO SCH (08:30)
[2019-09-24 13:36] VITALS: BP 119/83
[2019-09-24] MEDS: ENOXAPARIN 40 MG/0.4 ML SQ SCH (17:10)
[2019-09-25] MEDS: MULTIVITAMIN 1 TABLET PO SCH (07:59)
[2019-09-25] MEDS: FERROUS SULFATE 325 MG TABLET PO SCH (07:59)
[2019-09-25] MEDS: MULTIVITS,STRESS FORMULA 1 TABLET PO SCH (08:00)
[2019-09-25] MEDS: ENOXAPARIN 40 MG/0.4 ML SQ SCH (17:49)
[2019-09-25 19:50] VITALS: BP 92/67
[2019-09-26 08:00] VITALS: BP 108/72
[2019-09-26] MEDS: MULTIVITAMIN 1 TABLET PO SCH (09:36)
[2019-09-26] MEDS: MULTIVITS,STRESS FORMULA 1 TABLET PO SCH (09:37)
[2019-09-26] MEDS: FERROUS SULFATE 325 MG TABLET PO SCH (09:37)
[2019-09-26 14:42] VITALS: BP 105/76
[2019-09-26] MEDS: ENOXAPARIN 40 MG/0.4 ML SQ SCH (18:00)
[2019-09-27 07:00] VITALS: BP 110/81
[2019-09-27] MEDS: FERROUS SULFATE 325 MG TABLET PO SCH (08:41)
[2019-09-27] MEDS: MULTIVITS,STRESS FORMULA 1 TABLET PO SCH (08:41)
[2019-09-27] MEDS: MULTIVITAMIN 1 TABLET PO SCH (08:41)
[2019-09-27 12:38] VITALS: BP 102/65
[2019-09-27] MEDS: ENOXAPARIN 40 MG/0.4 ML SQ SCH (15:55)
[2019-09-27 18:57] VITALS: BP 110/77
[2019-09-28 00:13] VITALS: BP 110/82
[2019-09-28] MEDS: FERROUS SULFATE 325 MG TABLET PO SCH (10:01)
[2019-09-28] MEDS: MULTIVITAMIN 1 TABLET PO SCH (10:01)
[2019-09-28] MEDS: MULTIVITS,STRESS FORMULA 1 TABLET PO SCH (10:02)
[2019-09-28] MEDS: ENOXAPARIN 40 MG/0.4 ML SQ SCH (16:27)
[2019-09-28 20:23] VITALS: BP 94/69
[2019-09-29] MEDS: MULTIVITS,STRESS FORMULA 1 TABLET PO SCH (09:12)
[2019-09-29] MEDS: MULTIVITAMIN 1 TABLET PO SCH (09:12)
[2019-09-29] MEDS: FERROUS SULFATE 325 MG TABLET PO SCH (09:12)
[2019-09-29 14:59] VITALS: BP 102/66
[2019-09-29] MEDS: ENOXAPARIN 40 MG/0.4 ML SQ SCH (17:19)
[2019-09-29 19:05] VITALS: BP 87/61
[2019-09-30] MEDS: FERROUS SULFATE 325 MG TABLET PO SCH (08:00)
[2019-09-30] MEDS: MULTIVITAMIN 1 TABLET PO SCH (09:00)
[2019-09-30] MEDS: MULTIVITS,STRESS FORMULA 1 TABLET PO SCH (09:00)
[2019-09-30] MEDS: ENOXAPARIN 40 MG/0.4 ML SQ SCH (16:23)
[2019-09-30 19:21] VITALS: BP 95/66
[2019-10-01] MEDS: FERROUS SULFATE 325 MG TABLET PO SCH (07:58)
[2019-10-01] MEDS: MULTIVITAMIN 1 TABLET PO SCH (07:58)
[2019-10-01] MEDS: MULTIVITS,STRESS FORMULA 1 TABLET PO SCH (07:59)
[2019-10-01] MEDS: ENOXAPARIN 40 MG/0.4 ML SQ SCH (18:00)
[2019-10-01 20:01] VITALS: BP 102/70
[2019-10-02 08:00] VITALS: BP 118/78
[2019-10-02] MEDS: MULTIVITS,STRESS FORMULA 1 TABLET PO SCH (08:11)
[2019-10-02] MEDS: FERROUS SULFATE 325 MG TABLET PO SCH (08:11)
[2019-10-02] MEDS: MULTIVITAMIN 1 TABLET PO SCH (08:11)
[2019-10-02] MEDS ORDERED: OMNIPAQUE 350 MG/ML, 100ML BOTTLE ONE (12:42)
[2019-10-02 14:00] VITALS: BP 102/64
[2019-10-02] MEDS: ENOXAPARIN 40 MG/0.4 ML SQ SCH (16:45)
[2019-10-02 20:24] VITALS: BP 116/69
[2019-10-03] MEDS: MULTIVITS,STRESS FORMULA 1 TABLET PO SCH (09:00)
[2019-10-03] MEDS: FERROUS SULFATE 325 MG TABLET PO SCH (10:39)
[2019-10-03] MEDS: MULTIVITAMIN 1 TABLET PO SCH (10:39)
[2019-10-03 13:32] VITALS: BP 121/75
[2019-10-03] MEDS: ENOXAPARIN 40 MG/0.4 ML SQ SCH (18:00)
[2019-10-04] MEDS: FERROUS SULFATE 325 MG TABLET PO SCH ×2 (08:00→20:08)
[2019-10-04] MEDS: MULTIVITAMIN 1 TABLET PO SCH ×2 (09:00→20:08)
[2019-10-04] MEDS: MULTIVITS,STRESS FORMULA 1 TABLET PO SCH (09:00)
[2019-10-04 09:15] VITALS: BP 117/75
[2019-10-04 14:30] VITALS: BP 91/65
[2019-10-04] MEDS: ENOXAPARIN 40 MG/0.4 ML SQ SCH (16:44)
[2019-10-04 20:19] VITALS: BP 126/74
[2019-10-05] MEDS: MULTIVITS,STRESS FORMULA 1 TABLET PO SCH (09:00)
[2019-10-05 09:14] VITALS: BP 117/79
[2019-10-05] MEDS: MULTIVITAMIN 1 TABLET PO SCH (15:20)
[2019-10-05] MEDS: FERROUS SULFATE 325 MG TABLET PO SCH (15:20)
[2019-10-05] MEDS: ENOXAPARIN 40 MG/0.4 ML SQ SCH (17:28)
[2019-10-05 20:03] VITALS: BP 123/74
[2019-10-06] MEDS: MULTIVITS,STRESS FORMULA 1 TABLET PO SCH (09:00)
[2019-10-06] MEDS: FERROUS SULFATE 325 MG TABLET PO SCH (10:38)
[2019-10-06] MEDS: MULTIVITAMIN 1 TABLET PO SCH (10:38)
[2019-10-06] MEDS: ENOXAPARIN 40 MG/0.4 ML SQ SCH (18:00)
[2019-10-06 20:30] VITALS: BP 125/78
[2019-10-07] MEDS: FERROUS SULFATE 325 MG TABLET PO SCH (08:00)
[2019-10-07] MEDS: MULTIVITS,STRESS FORMULA 1 TABLET PO SCH (09:00)
[2019-10-07] MEDS: MULTIVITAMIN 1 TABLET PO SCH (09:00)
== END 2019-10-07 17:33 | disposition left against medical advice (07) | DRG 863 ==
LOC: ED 18:09 → 3N 18:13
PROVIDERS: ADMIT Internal Medicine; ATTEND Hospitalist
PROC: BW111ZZ Fluoroscopy of Abdomen and Pelvis using Low Osmolar Contrast (ICD-10-PCS; principal; 2019-07-27)
PROC: 02HV33Z Insertion of Infusion Device into Superior Vena Cava, Percutaneous Approach (ICD-10-PCS; 2019-07-31)
PROC: B5181ZA Fluoroscopy of Superior Vena Cava using Low Osmolar Contrast, Guidance (ICD-10-PCS; 2019-07-31)
PROC: B548ZZA Ultrasonography of Superior Vena Cava, Guidance (ICD-10-PCS; 2019-07-31)
DX: T81.41XA Infection following a procedure, superficial incisional surgical site, initial encounter (principal); K63.2 Fistula of intestine; L03.311 Cellulitis of abdominal wall; B95.8 Unspecified staphylococcus as the cause of diseases classified elsewhere; B95.61 Methicillin susceptible Staphylococcus aureus infection as the cause of diseases classified elsewhere; D50.9 Iron deficiency anemia, unspecified; E66.9 Obesity, unspecified; Z71.3 Dietary counseling and surveillance; Z68.37 Body mass index [BMI] 37.0-37.9, adult; K46.9 Unspecified abdominal hernia without obstruction or gangrene; K59.00 Constipation, unspecified; Z80.3 Family history of malignant neoplasm of breast; Z85.46 Personal history of malignant neoplasm of prostate; Z86.14 Personal history of Methicillin resistant Staphylococcus aureus infection; Z87.891 Personal history of nicotine dependence; Z91.19 Patient's noncompliance with other medical treatment and regimen; Z96.652 Presence of left artificial knee joint; Z53.29 Procedure and treatment not carried out because of patient's decision for other reasons; Y83.8 Other surgical procedures as the cause of abnormal reaction of the patient, or of later complication, without mention of misadventure at the time of the procedure; Y92.89 Other specified places as the place of occurrence of the external cause
CPT/HCPCS: 36415; 36573; 74177; 76080; 80048; 80053; 81003; 82565; 82728; 82962; 83540; 83550; 83605; 83690; 84145; 85025; 85651; 86140; 87040; 87070; 87077; 87186; 87205; 97162; G0378; J1644; J1650; J1756; J2543; J2997; J3370; Q9967; C1751; J7040